=== PATIENT | female | born 1985 | race Caucasian/White ===

== ENCOUNTER 2016-09-10 18:39 | Inpatient (IN) | payer OTHER ==
--- NOTE | ~2016-09-10 | PA ---
Unit #: [id number] #: [id number] Patient: MIGUEL TRIPP [id number] [place] [address] [id number] MR#: [id number] NAME: MIGUEL TRIPP. ROOM: P176 Age: 30 Sex: F Admission Date: 09/10/2016 : 1985 Date of Assessment: 09/11/2016 Attending Physician: Víctor Contreras M.D. Admitting Physician: Víctor Contreras M.D. Primary Care Physician: Generic Doctor Not In System PSYCHIATRIC ASSESSMENT IDENTIFYING INFORMATION The patient is a 30-year-old white female admitted to the [facility] following recent relapse of heroin and alcohol use. CHIEF COMPLAINT Detox from heroin and alcohol. INFORMANT Patient, reliability is fair. RELIABILITY Fair. HISTORY OF PRESENT ILLNESS The patient is a 30-year-old white female with a history of polysubstance dependence. She has been residing at [facility] related to a history of alcohol and opioid use. The patient reports that she had recently relapsed and sent to this facility from [facility] in order to detox. She will return to that facility upon her discharge from this facility. She denies current suicidal or homicidal ideation and denies prior chemical dependence or other psychiatric treatment. She is currently on no prescribed psychotropic or other medications. She denies current suicidal or homicidal ideation or recent changes in mood, sleep, or appetite. PAST PSYCHIATRIC HISTORY None. PAST MEDICAL HISTORY Noncontributory. MEDICATIONS None. ALLERGIES None. FAMILY HISTORY Noncontributory. SOCIAL HISTORY The patient is originally from [place], [place]. She is staying at [facility] related to a parole violation after having produced a dirty Unit #: [id number] #: [id number] Patient: MIGUEL TRIPP urine. The patient reports substance use as noted previously. She is not presently employed. MENTAL STATUS EXAMINATION Examination at this time reveals the patient to be well-developed well-nourished white female appearing stated age. She is in moderate physical distress at the time of examination. She is awake, alert, and oriented in all spheres. Mood is mildly dysphoric, her affect congruent. Speech is generally well-coherent. There are no gross deficits in memory or cognition noted. Intelligence is judged to be in the average range based on fund of knowledge. The patient is cooperative throughout the interview. She is currently denying suicidal or homicidal ideation or psychotic features. Judgment and insight appear to be intact. ASSETS AND LIABILITIES The patient's assets: Motivation for change. Liabilities: Lack of resources. DIAGNOSTIC IMPRESSION 1. Alcohol use disorder. 2. Opioid use disorder. TREATMENT PLAN The patient remains hospitalized for safety and stabilization. Routine detoxification protocol for alcohol and opiates has been initiated. The patient will participate in appropriate order of milieu activities. ESTIMATED LENGTH OF STAY 3 to 5 days. The followup will take place through the auspices of [facility]. Dictated by... Víctor Contreras M.D. URVASHI/medardo TD: 09/11/2016 14:41 JOB #: [id number] PSYCHIATRIC ASSESSMENT Page 1 of 1 X Víctor Contreras MD X PSYCHIATRIC ASSESSMENT
--- NOTE | ~2016-09-10 | DS ---
Unit #: [id number] #: [id number] Patient: MIGUEL TRIPP [id number] [place] [address] [id number] I MR#: [id number] NAME: MIGUEL TRIPP. ROOM: [facility] Age: 30 Sex: F Admission Date: 09/10/2016 : 1985 Discharge Date: 09/15/2016 Attending Physician: Víctor Contreras M.D. Primary Care Physician: Generic Doctor Not In System DISCHARGE SUMMARY REASON FOR ADMISSION The patient is a 30-year-old white female admitted to the [facility] Unit with a history of opiate and alcohol abuse. HOSPITAL COURSE The patient was admitted to the [facility] and placed on routine detoxification protocol to cover both opioids and alcohol. Her stay in the hospital is a fairly uneventful one. She was active within the therapeutic milieu. Due to complain of poor sleep, she was begun on trazodone 50 mg at h.s. while hospitalized. By 09/14/2016, the patient was in bright spirits and requested discharge back to [facility] and it was so ordered. FINAL DIAGNOSES 1. Opioid use disorder. 2. Alcohol use disorder. DISPOSITION ON DISCHARGE The patient was discharged on no psychotropic or other medications. FOLLOWUP Followup will take place through the auspices of "[facility]." PROGNOSIS The patient's prognosis is considered fair. Dictated by... Víctor Contreras M.D. URVASHI/medardo TD: 09/14/2016 15:11 JOB #: [id number] Unit #: [id number] #: [id number] Patient: MIGUEL TRIPP DISCHARGE SUMMARY Page 1 of 1 X Víctor Contreras MD X DISCHARGE SUMMARY
--- NOTE | ~2016-09-10 | HP ---
Unit #: [id number] #: [id number] Patient: MIGUEL TRIPP [id number] [place] [address] [id number] I MR#: [id number] NAME: MIGUEL TRIPP. ROOM: P176 Age: 30 Sex: F Admission Date: 09/10/2016 : 1985 Attending Physician: Víctor Contreras M.D. Admitting Physician: Víctor Contreras M.D. Primary Care Physician: Generic Doctor Not In System HISTORY AND PHYSICAL HISTORY OF PRESENT ILLNESS Miguel is a 30 year old admitted to [facility] because of her polysubstance abuse which includes alcohol and snorting heroin. PAST MEDICAL HISTORY 1. Long history of polysubstance abuse. 2. Obesity. PAST SURGICAL HISTORY x2. ALLERGIES No known drug allergies. SOCIAL HISTORY She does not smoke. Drinks a fifth of liquor plus on a daily basis and admits to regular use of heroin. FAMILY HISTORY Medically noncontributory. REVIEW OF SYSTEMS CONSTITUTIONAL: No fever or chills. HEENT: Denies any sore throat, ear pain or runny nose. CARDIOVASCULAR: Denies chest pain, irregular heart rhythm or palpitations. CHEST: Denies shortness of breath or cough. No hemoptysis. GASTROINTESTINAL: Denies nausea, vomiting, diarrhea or chronic constipation. ENDOCRINE: Denies history of increased thirst or urination. No recent significant weight loss or gain. GENITOURINARY: Denies dysuria, frequency, or hematuria. SKIN: Denies any rashes. HEMATOLOGIC: Denies history of increased bleeding or bruising. MUSCULOSKELETAL: Denies any hot, swollen joints. No generalized muscle pain. NEUROLOGIC: Denies problems with vision or speech. No frequent, severe headaches. No numbness, tingling or weakness in any extremities. Denies loss of bladder or bowel control. CURRENT MEDICATIONS Detox protocol. PHYSICAL EXAMINATION Unit #: [id number] #: [id number] Patient: MIGUEL TRIPP GENERAL: Alert, obese, in no apparent distress. VITAL SIGNS: Blood pressure 124/74, heart rate 80, respirations 16, temperature 98.6. WEIGHT: 191. HEIGHT: 5 feet 2 inches. SKIN: Warm and dry without rash or lesion. HEENT: Normocephalic. TMs not viewed. Oral and nasal passages clear. Conjunctivae clear. PERRLA. EOMs intact. NECK: Supple without lymphadenopathy or thyromegaly. HEART: Regular rate and rhythm without murmur. LUNGS: Clear. ABDOMEN: Soft, nontender. : Not done. EXTREMITIES: No evidence of cyanosis, clubbing or edema. Moves all without focal deficit. NEUROLOGICAL: Grossly within normal limits. Cranial Nerves: II: Visual douglas are intact. III, IV AND : Extraocular movements are intact. Pupils are equal, round and reactive to light. V: Facial sensation is grossly normal. VII: Facial movements and expression are normal. VIII: Auditory acuity grossly intact. IX, X: Uvula is midline. Phonation is normal. XI: Patient shrugs shoulders and turns head normally. XII: Tongue protrudes in the midline. Sensory and Motor Function: Sensory and motor sensation is grossly normal. Motor: moves all extremities well. Coordination: Gait is normal. Deep Tendon Reflexes: Intact. IMPRESSION Psychiatric admission. RECOMMENDATIONS PSYCHIATRIC: Per psychiatrist. MEDICAL: See no contraindications to participate in facility's activities. MEDICAL PROGNOSIS Good. MEDICAL CONDITION Stable. Dictated by... María Vargas P.A.-C. for Jenna Quiroz/keon TD: 09/11/2016 19:46 JOB #: [id number] Unit #: [id number] #: [id number] Patient: MIGUEL TRIPP HISTORY AND PHYSICAL Page 1 of 1 X María Vargas HISTORY AND PHYSICAL
--- NOTE | ~2016-09-10 | PN ---
Unit #: [id number] #: [id number] Patient: MIGUEL TRIPP [id number] [facility] [address] [place] [address] [id number] I MR#: [id number] NAME: MIGUEL TRIPP ROOM: P176 Age: 30 Sex: F Admission Date: 09/10/2016 : 1985 Attending Physician: Víctor Contreras M.D. Admitting Physician: Víctor Contreras M.D. Primary Care Physician: Nick Doctor Not In System [facility] PROGRESS NOTES DATE 09/12/2016 DISCUSSION The patient complains of poor sleep last evening, but is otherwise exhibiting little in the way of signs or symptoms of withdrawal. I will add Melatonin 6 mg at h.s. p.r.n. insomnia. Dictated by... Víctor Contreras M.D. CB/medardo TD: 09/12/2016 14:31 JOB #: [id number] [facility] PROGRESS NOTES Page 1 of 1 X Víctor Contreras MD PROGRESS NOTE
--- NOTE | ~2016-09-10 | PN ---
Unit #: [id number] #: [id number] Patient: MIGUEL TRIPP [id number] [facility] [address] [place] [address] [id number] I MR#: [id number] NAME: MIGUEL TRIPP ROOM: 76 Age: 30 Sex: F Admission Date: 09/10/2016 : 1985 Attending Physician: Víctor Contreras M.D. Admitting Physician: Víctor Contreras M.D. Primary Care Physician: Nick Doctor Not In System [facility] PROGRESS NOTES DATE 09/13/2016 DISCUSSION Patient is complaining of continued poor sleep. We will discontinue melatonin and begin trazodone in an anticipation of a.m. discharge. . Dictated by... Víctor Contreras M.D. CB/leena TD: 09/13/2016 15:15 JOB #: [id number] [facility] PROGRESS NOTES Page 1 of 1 X Víctor Contreras MD PROGRESS NOTE
[2016-09-11 09:35] LABS: BASOPHIL# 0.1 X10e3 (0-0.3); BASOPHIL% 0.5 % (0-2.5); EOSINOPHIL# 0.1 X10e3 (0-0.7); EOSINOPHIL% 1.1 % (0.0-7.0); HEMATOCRIT 38.1 % (35.0-45.0); HEMOGLOBIN 11.9 gm/dL (12.0-16.0); LYMPHOCYTE# 3.6 X10e3 (1.0-3.5); LYMPHOCYTE% 37.3 % (17.0-45.0); MEAN CELL VOLUME 82.8 FL (83-96); MEAN CORPUSCULAR HEMOGLOBIN 25.9 PG (28-34); MEAN CORPUSCULAR HGB CONC 31.2 g/dL (30-36); MEAN PLATELET VOLUME 8.5 FL (6.5-11.5); MONOCYTE# 1.1 X10e3 (0-1.0); MONOCYTE% 10.9 % (3.0-12.0); NEUTROPHIL# 4.9 X10e3 (1.5-7.1); NEUTROPHIL% 50.2 % (40-75); PLATELET COUNT 334 X10e3 (140-420); RED CELL DISTRIBUTION WIDTH 16.2 % (11.0-15.5); WHITE BLOOD COUNT 9.8 X10e3 (4.0-10.5)
[2016-09-11 09:39] LABS: DIFF IND NO
[2016-09-11 10:24] LABS: THYROID STIMULATING HORMONE 1.26 uIU/ml (0.34-5.60)
[2016-09-11 10:31] LABS: FREE THYROXIN (T4) 0.95 ng/dL (0.58-1.64)
[2016-09-11 11:02] LABS: ALKALINE PHOSPHATASE 54 U/L (32-92); ALT (SGPT) 9 U/L (10-40); AST (SGOT) 11 U/L (10-42); BILIRUBIN,TOTAL 0.4 mg/dL (0.2-2.0); BLOOD UREA NITROGEN 9 mg/dL (9-23); BUN/CREATININE RATIO 12.85; CALCIUM SERUM 9.7 mg/dL (8.4-10.2); CARBON DIOXIDE 28 mmol/L (22-31); CHLORIDE 106 mmol/L (100-111); CREATININE SERUM 0.7 mg/dL (0.6-1.4); GLOM FILT RATE Estimated ABOVE60 mL/min (>60); GLUCOSE FASTING 99 mg/dL (70-110); POTASSIUM 4.1 mmol/L (3.5-5.1); PROTEIN TOTAL SERUM 6.6 g/dL (6.0-8.3); SODIUM 142 mmol/L (135-145)
[2016-09-12 12:39] LABS: URINE APPEARANCE CLEAR; URINE BILIRUBIN NEG (NEG); URINE BLOOD NEG (NEG); URINE COLOR DK YELLOW; URINE GLUCOSE NEG (NEG); URINE KETONE NEG (NEG); URINE LEUKOCYTE ESTERASE NEG (NEG); URINE NITRATE NEG (NEG); URINE PROTEIN NEG (NEG); URINE SPECIFIC GRAVITY 1.016 (1.003-1.035); URINE UROBILINOGEN 0.2 MG/DL (NEG)
[2016-09-12 13:09] LABS: AMPHETAMINE NEG (NEG); BARBITURATES NEG (NEG); BENZODIAZEPINES POS (NEG); COCAINE NEG (NEG); MARIJUANA NEG (NEG); OPIATES POS (NEG); TRICYCLIC ANTIDEPRESSANTS NEG (NEG); U METHADONE NEG (NEG)
[2016-09-14 14:26] LABS: HA AB IGM (HEPPAN) Nonreactive (Nonreactive); HB CORE AB IGM (HEPPAN) Nonreactive (Nonreactive); HB S AG (HEPPAN) Nonreactive (Nonreactive); HEP C AB (HEPPAN) Nonreactive (Nonreactive); HEP C AB SIGNAL TO CUTOFF 0.01 ratio (<1.00)
== END 2016-09-14 15:45 | disposition home or self-care (01) | DRG 897 ==
LOC: P1E 18:39
PROVIDERS: Specialist
PROC: HZ2ZZZZ Detoxification Services for Substance Abuse Treatment (ICD-10-PCS; principal; 2016-09-10)
DX: F11.20 Opioid dependence, uncomplicated (principal); F10.20 Alcohol dependence, uncomplicated; E66.9 Obesity, unspecified
CPT/HCPCS: 80053; 80074; 80307; 81003; 84439; 84443; 84703; 85025; 86592; 87806